=== PATIENT | male | born 1990 | race Caucasian/White ===

== ENCOUNTER 2022-04-12 13:30 | Emergency (ER) | payer OTHER ==
[~2022-04-12] VITALS: Ht 180.3 cm; Wt 81.6 kg
[2022-04-12] MEDS ORDERED: NEOMY/BACITRA/POLYMYXIN B OINT UD PACKET TP ONE ×2 (14:30→14:33)
[2022-04-12] MEDS ORDERED: TDAP DIPH,PERTUSS,TET VAC/PF 0.5 ML DISP.SYRIN IM ONE ×2 (14:30→14:33)
--- NOTE | 2022-04-12 15:00 | NUR ---
Pt arrived accompanied by [employer] with c/o chest pain, 7/10. Pt also has laceration of the skin in between index finger and the thumb, middle and ring fingers. Pain rate is 5/10. Seen by ERMD for MSE.
[2022-04-12] MEDS ORDERED: ALBU18HF2 INH (15:32)
[2022-04-12] MEDS ORDERED: AMOX500T2 PO (15:32)
--- NOTE | 2022-04-12 16:08 | NUR ---
Patient discharged to home in stable condition. Written and verbal after care instructions given. Patient verbalizes understanding of instructions. Stressed follow up or return to ER for worsening s/s.
[2022-04-12 16:10] VITALS: BP 137/83
== END 2022-04-12 16:11 ==
LOC: ER 13:30
DX: J45.901 Unspecified asthma with (acute) exacerbation (principal); J18.9 Pneumonia, unspecified organism; S61.211A Laceration without foreign body of left index finger without damage to nail, initial encounter; Y35.813A Legal intervention involving manhandling, suspect injured, initial encounter; Y92.89 Other specified places as the place of occurrence of the external cause; F15.10 Other stimulant abuse, uncomplicated; R03.0 Elevated blood-pressure reading, without diagnosis of hypertension
CPT/HCPCS: 71045; 90715; 93005; A4663